=== PATIENT | male | born 1975 | race Caucasian/White ===

== ENCOUNTER → 2024-02-14 12:41 | Outpatient (REF) | payer BC, SELFPAY | LOC: HWRAD 12:41 | PROVIDERS: ATTENDING PHYSICIAN Surgery; FAMILY PHYSICIAN Family Medicine | DX: Z87.442 Personal history of urinary calculi (principal) | CPT/HCPCS: 76775 ==

== ENCOUNTER 2024-03-22 10:52 | Emergency (ER) | payer BC, SELFPAY ==
[2024-03-22 11:07] VITALS: BP 155/105
--- NOTE | 2024-03-22 12:15 | ED.GENMED ---
History of Present Illness
General
Chief Complaint: Cold/Flu/URI Symptoms
Source: patient
Time Seen by Provider: 03/22/24 11:51
Travel History
Have you had any contact with someone who has COVID-19?: No
Do you have any symptoms of coronavirus? Fever > 100 degrees, chills, cough, shortness of breath, sore throat, loss of taste or smell, muscle aches, or headache?: Yes
Symptoms:: see triage note
History of Present Illness
History of Present Illness:
49-year-old male with past medical history of pneumonia in the past presenting to the emergency department for evaluation of cough and shortness of breath that started on this past week and has persisted. Patient went to urgent care who
prescribed him Zyrtec and Flonase and did not do any testing on him but he states despite these medications he still remains with the nonproductive cough. No fevers, chills, rigors sore throat, otalgia, sinus congestion. Patient is a principal at
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 No other concerns at this time.
Past History
Past History
ED Past Medical History: Other
ED Past Surgical History: Orthopedic and Urological (Kidney stone removal)
Social History
Tobacco: Non-smoker
Alcohol: None
Drug: None
Personal:
Living: with family
Employment: Employed
Family History
Family History: Other (Noncontributory)
Review of Systems
Review of Systems
All Other Systems: ROS reviewed and negative except as documented in HPI and ROS
Phy Exam
Physical Exam
Physical Exam:
GENERAL: Alert , in no apparent distress, intermittent dry nonproductive cough noted
EYE: conjunctiva clear
NECK: Supple
ENT: o/p clr, mmm. Uvula midline, airway patent
CARDIAC: Regular rate and rhythm
LUNGS: Clear breath sounds bilaterally, no acute respiratory distress, no wheezes/rales/rhonchi
NEUROLOGICAL: Alert and oriented
SKIN: Warm and dry, skin intact.
MUSCULOSKELETAL: well perfused.
PSYCH: Normal and appropriate interaction.
Scores
Heart Failure Risk
Heart Failure Risk Score: Not Applicable
Heart Score for Chest Pain Patients
STEMI patient?: Not applicable
Withdrawal Assessment of Alcohol
Withdrawal Assessment Completed?: Not applicable
Course
Orders/Labs/Results
Orders:
Orders
03/22/24 11:52
CR Chest - 2 Views Urgent
Comment:
Reason For Exam: cough
Vital Signs
Initial and Last Documented VS:
Initial Vital Signs
Temp Pulse Resp BP Pulse Ox
98.0 F 100 18 155/105 96
03/22/24 11:07 03/22/24 11:07 03/22/24 11:07 03/22/24 11:07 03/22/24 11:07
Last Documented Vital Signs
Temp Pulse Resp BP Pulse Ox
98.0 F 100 18 155/105 96
03/22/24 11:07 03/22/24 11:07 03/22/24 11:07 03/22/24 11:07 03/22/24 11:07
MDM/Problems Addressed
Differential Diagnosis Includes:
COVID, flu, other viral etiology, bronchitis, pneumonia
MDM/Problems Addressed:
49-year-old male presenting the emergency department for evaluation of cough x 3 days and some mild shortness of breath. On arrival to the emergency department here patient is stable. Pulse ox 96% on room air in no acute respiratory distress.
Lungs clear to auscultation. Chest x-ray ordered. Anticipate continued outpatient management. Reassessment following.
*Radiology
Radiology exam reviewed: preliminary read by ED provider (Normal chest x-ray)
*Pulse Oximetry
Patient hypoxic: no
*Critical Care Note
Total Time (30-74mins, 75-104mins- exclusive of procedures): Not Applicable
Comment
Comment:
Patient's chest x-ray unremarkable. He remains stable. Prescription for Medrol Dosepak and inhaler sent to pharmacy. I did send a prescription for doxycycline to pharmacy as well however advised patient hold on taking this medication unless he
remains symptomatic through Saturday. Patient is agreeable with this plan.
ED Attending Note
-
Portions of this chart may have been created with voice recognition software.� Occasional wrong word or��sound alike� substitutions may have occurred due to the inherent limitations of voice recognition software.
Discharge Plan
Departure
Patient Disposition: Home (Routine Discharge)
Date of Disposition: 03/22/24
Time of Disposition: 12:15
Patient with high blood pressure during this ER visit?: Yes
Discharge Problem:
Cough
Instructions: Cough, Adult ED
Prescriptions:
New
methylprednisolone [Medrol (Sai)] 4 mg tablets,dose pack
4 mg PO DIRECTED Qty: 21 0RF
albuterol sulfate 90 mcg/actuation HFA aerosol inhaler
2 puff inhalation Q6H PRN (Reason: shortness of breath or wheezing) Qty: 6.7 0RF
doxycycline hyclate [Vibramycin] 100 mg capsule
100 mg PO BID 10 Days Qty: 20 0RF
No Action
ibuprofen [Advil] 200 mg Tablet
400 mg PO PRN PRN (Reason: pain)
albuterol sulfate 1 PUFF HFA aerosol inhaler
1 - 2 puff inhalation R Q4HPRN PRN (Reason: cough, wheeze)
multivitamin Tablet
1 tab PO DAILY
Referrals:
Bright Duron DO [Family Provider] -
Interventions
Interventions:
*Risk Screen - Suicide Last Done: 03/22/24 12:44
*General Assessment Last Done: 03/22/24 11:07
*Neglect/Abuse Screening Last Done: 03/22/24 12:44
ED- Fall Risk Assessment Last Done: 03/22/24 12:44
*ED COVID-19 Vaccine History Last Done: 03/22/24 11:07
*Nursing Disposition Last Done: 03/22/24 12:44
ED- Pulmonary Assessment Last Done: 03/22/24 12:44
Discharge Date and Time
Discharge Date/Time: 03/22/24 12:45
Print Language: CYMRAES
== END 2024-03-22 12:45 | disposition home or self-care (01) ==
LOC: EMR 10:52
PROVIDERS: EMERGENCY PHYSICIAN Emergency Medicine; FAMILY PHYSICIAN Family Medicine
DX: R05.9 Cough, unspecified (principal); R06.02 Shortness of breath; R03.0 Elevated blood-pressure reading, without diagnosis of hypertension; Z87.01 Personal history of pneumonia (recurrent); Z87.442 Personal history of urinary calculi; Z88.6 Allergy status to analgesic agent; Z88.8 Allergy status to other drugs, medicaments and biological substances
CPT/HCPCS: 99283; 71046

== ENCOUNTER 2024-03-25 06:40 | Emergency (ER) | payer BC, SELFPAY ==
[2024-03-25 06:42] VITALS: BP 159/104
--- NOTE | 2024-03-25 07:28 | ED.GENMED ---
History of Present Illness
General
Chief Complaint: Cold/Flu/URI Symptoms
Source: patient
Exam Limitations: none
Time Seen by Provider: 03/25/24 06:48
Nursing documentation reviewed up to this point in time: agreed with
Travel History
Have you had any contact with someone who has COVID-19?: No
Do you have any symptoms of coronavirus? Fever > 100 degrees, chills, cough, shortness of breath, sore throat, loss of taste or smell, muscle aches, or headache?: No
History of Present Illness
History of Present Illness:
49-year-old male with cough persistent despite having had 6 doses of doxycycline, Albuterol inhaler and on his third day of a prednisone taper after being evaluated here in this ED 3 days ago for his cough that started 6 days ago. Did go to and
got rx for Flonase and Zyrtec which he has been taking. Denies fever/chills. Denies n/v/d. 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
He denies fever or chills. Cough has kept him up at night.
Past History
Past History
ED Past Medical History: None
ED Past Surgical History: Orthopedic and Urological (Kidney stone removal)
Social History
Tobacco: Non-smoker
Alcohol: None
Drug: None
Personal:
Living: with family
Employment: Employed
Family History
Family History: Other (Noncontributory)
Review of Systems
Review of Systems
Allergies reviewed?: Yes
All Other Systems: ROS reviewed and negative except as documented in HPI and ROS
Constitutional: Denies fever
EENT: Denies sore throat
Respiratory: Reports cough; Denies trouble breathing
Cardiac: Denies chest pain
ABD/GI: Denies abdominal pain, nausea or diarrhea
Musculoskeletal: Reports no symptoms
Skin: Reports no symptoms
Neurological: Reports no symptoms
Phy Exam
Physical Exam
Physical Exam:
GENERAL: No acute distress. A&Ox3.
CONSTITUTIONAL: Afebrile.
EYES: Clear, conjunctivae normal
ENMT: moist mucus membranes, Pharynx nl
RESPIRATORY: Regular respirations, nonlabored, lungs clear. Frequent episodes of hacking coughing spasms during exam
CARDIOVASCULAR: Regular rate and rhythm, no murmurs, no rubs.
GI: Soft, nontender, normal BS
MUSCULOSKELETAL: Moves with ease. Well perfused.
SKIN: Warm, dry, pink
PSYCH: Normal mood and affect. Well kept, interactive and appropriate
NEUROLOGIC: Awake, alert and oriented. No focal neurological deficits
Course
Orders/Labs/Results
Orders:
Orders
03/25/24 07:26
CR Chest - 2 Views Urgent
Comment:
Reason For Exam: cough
03/25/24 07:35
COVID-19 Antigen Urgent
Source: Nasal Swab
03/25/24 08:05
Ipratropium/Albuterol Sulfate [Duoneb] 3 ml INH R NOW STA
Vital Signs
Initial and Last Documented VS:
Initial Vital Signs
Temp Pulse Resp BP Pulse Ox
98.7 F 106 24 159/104 97
03/25/24 06:42 03/25/24 06:42 03/25/24 06:42 03/25/24 06:42 03/25/24 06:42
Last Documented Vital Signs
Temp Pulse Resp BP Pulse Ox
98.7 F 80 18 126/90 94
03/25/24 06:42 03/25/24 07:33 03/25/24 07:33 03/25/24 07:33 03/25/24 07:33
Travel Writer consulted with Physician
Travel Writer consulted with physician?: Yes
Name of Physician Consulted: Gunnar
MDM/Problems Addressed
Differential Diagnosis Includes:
Viral vs bacterial pneumonia, Covid, bronchitis
MDM/Problems Addressed:
49-year-old male with cough persistent despite having had 6 doses of doxycycline, Albuterol inhaler and on his third day of a prednisone taper after being evaluated here in this ED 3 days ago for his cough that started 6 days ago. Did go to and
got rx for Flonase and Zyrtec which he has been taking. Denies fever/chills. Denies n/v/d. 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
He denies fever or chills. Cough has kept him up at night.
CXR: Unchanged from 3 days ago, no pneumonia
For some reason, unable to send Guaifenesin AC to his pharmacy. Written RX given to patient after speaking with the [facility] pharmacist who states she did not receive the transmission
Rx for Z pack also sent
He will continue current meds
*Critical Care Note
Total Time (30-74mins, 75-104mins- exclusive of procedures): Not Applicable
ED Attending Note
-
Portions of this chart may have been created with voice recognition software.� Occasional wrong word or��sound alike� substitutions may have occurred due to the inherent limitations of voice recognition software.
Discharge Plan
Departure
Patient Disposition: Home (Routine Discharge)
Date of Disposition: 03/25/24
Time of Disposition: 08:46
Patient with high blood pressure during this ER visit?: No
Condition: Good
Discharge Problem:
Cough in adult
Instructions: Viral Upper Respiratory Infection, Adult (DC), Seasonal Allergies ED
Prescriptions:
New
codeine-guaifenesin [Guaifenesin AC] 10-100 mg/5 mL liquid
5 ml PO ONCE Qty: 60 0RF
azithromycin [Zithromax Z-Sai] 250 mg tablet
250 mg PO DAILY 5 Days Qty: 6 0RF
No Action
ibuprofen [Advil] 200 mg Tablet
400 mg PO PRN PRN (Reason: pain)
albuterol sulfate 1 PUFF HFA aerosol inhaler
1 - 2 puff inhalation R Q4HPRN PRN (Reason: cough, wheeze)
multivitamin Tablet
1 tab PO DAILY
methylprednisolone [Medrol (Sai)] 4 mg tablets,dose pack
4 mg PO DIRECTED Qty: 21 0RF
albuterol sulfate 90 mcg/actuation HFA aerosol inhaler
2 puff inhalation Q6H PRN (Reason: shortness of breath or wheezing) Qty: 6.7 0RF
doxycycline hyclate [Vibramycin] 100 mg capsule
100 mg PO BID 10 Days Qty: 20 0RF
Referrals:
Bright Duron, DO [Family Provider] - As needed
Activity Restrictions/Additional Instructions:
As we discussed, your symptoms are most likely a combination of seasonal allergies and viral upper respiratory infection. Continue the prednisone taper, albuterol, Zyrtec, Flonase and I prescribed guaifenesin with codeine for your cough to use at
bedtime.
I sent a prescription to your pharmacy for a Zpack to treat bronchitis
Your x-ray shows no sign of pneumonia.
Your Covid test is negative
See your doctor next week if not a lot better by then
Interventions
Interventions:
*Risk Screen - Suicide Last Done: 03/25/24 06:42
*General Assessment Last Done: 03/25/24 07:33
*Neglect/Abuse Screening Last Done: 03/25/24 06:42
ED- Fall Risk Assessment Last Done: 03/25/24 07:33
*ED COVID-19 Vaccine History Last Done: 03/25/24 07:33
*Nursing Disposition Last Done: 03/25/24 09:12
ED- Pulmonary Assessment Last Done: 03/25/24 07:33
Discharge Date and Time
Discharge Date/Time: 03/25/24 09:13
Print Language: SINGAP[place]
[2024-03-25 07:33] VITALS: BP 126/90
[2024-03-25 08:00] LABS: COVID-19 Antigen Negative (Negative)
[2024-03-25] MEDS: DUONEB 3 ML INH (08:11)
== END 2024-03-25 09:13 | disposition home or self-care (01) ==
LOC: EMR 06:40
PROVIDERS: Registered Nurse; EMERGENCY PHYSICIAN Emergency Medicine; FAMILY PHYSICIAN Family Medicine
DX: R05.9 Cough, unspecified (principal)
CPT/HCPCS: 99284; 94640; 71046; 87811

== ENCOUNTER → 2025-03-30 07:06 | Outpatient (REF) | payer BC, SELFPAY | LOC: HWRAD 07:06 | PROVIDERS: ATTENDING PHYSICIAN Surgery; FAMILY PHYSICIAN Family Medicine | DX: R31.0 Gross hematuria (principal); K20.0 Eosinophilic esophagitis | CPT/HCPCS: 74018; 76775 ==